=== PATIENT | male | born 1985 | race Caucasian/White ===

== ENCOUNTER 2020-02-19 14:43 | Emergency (ER) | payer MEDICAID ==
--- NOTE | 2020-02-19 14:53 | EDM.PDOC ---
ED HPI GENERAL MEDICAL PROBLEM - General Chief Complaint: General Stated Complaint: BROKEN R ANKLE? Time Seen by Provider: 02/19/20 14:52 Source of Information: Reports: Patient History Limitations: Reports: No Limitations - History of Present Illness INITIAL COMMENTS - FREE TEXT/NARRATIVE: Yesterday, roughly 9 AM, while descending from a ladder, slipped at roughly the third rung striking right ankle with inversion of the foot. Pain has persisted with swelling to the lateral aspect of the ankle region. Tenderness to the lateral malleolus. Onset Date: 02/18/20 Onset Time: 09:00 Duration: Hour(s): Location: Reports: Lower Extremity, Right Quality: Reports: Burning Severity: Moderate Improves with: Reports: None Worsens with: Reports: Movement Context: Reports: Activity Associated Symptoms: Reports: No Other Symptoms - Related Data Allergies Allergy/AdvReac Type Severity Reaction Status Date / Time No Known Drug Allergies Allergy Cannot Verified 02/19/20 14:50 Remember Home Meds: Home Meds FLUoxetine [PROzac] 10 mg PO DAILY 02/19/20 [History] Past Medical History HEENT History: Reports: Impaired Vision Gastrointestinal History: Reports: None Genitourinary History: Reports: None Musculoskeletal History: Reports: Fracture Other Musculoskeletal History: fx left metatarsal and right foot, fx. right hand, Neurological History: Reports: None Psychiatric History: Reports: None Endocrine/Metabolic History: Reports: None Hematologic History: Reports: None Immunologic History: Reports: None Dermatologic History: Reports: None - Infectious Disease History Infectious Disease History: Reports: Chicken Pox - Past Surgical History HEENT Surgical History: Reports: Eye Surgery, Laser Surgery GI Surgical History: Reports: None Male Surgical History: Reports: None Endocrine Surgical History: Reports: None Neurological Surgical History: Reports: None Musculoskeletal Surgical History: Reports: None Dermatological Surgical History: Reports: None Social & Family History - Family History Family Medical History: Noncontributory - Caffeine Use Caffeine Use: Reports: Coffee, Energy Drinks, Soda, Tea ED ROS GENERAL - Review of Systems Review Of Systems: Comprehensive ROS is negative, except as noted in HPI. ED EXAM, GENERAL - Physical Exam Exam: See Below General Appearance: Alert, WD/WN, No Apparent Distress Ears: Normal External Exam, Normal Canal, Hearing Grossly Normal Nose: Normal Inspection, Normal Mucosa Throat/Mouth: Normal Inspection, Normal Lips, Normal Teeth, Normal Oropharynx Head: Atraumatic, Normocephalic Neck: Normal Inspection, Supple, Non-Tender, Full Range of Motion Respiratory/Chest: No Respiratory Distress, Lungs Clear, Normal Breath Sounds, No Accessory Muscle Use Cardiovascular: Normal Peripheral Pulses, Regular Rate, Rhythm, No Murmur GI/Abdominal: Non-Tender (Male) Exam: Deferred Rectal (Males) Exam: Deferred Back Exam: Full Range of Motion Extremities: Other (Edema to the lateral malleolus of the right leg) Neurological: Alert, Oriented, CN II-XII Intact, Normal Cognition, Normal Gait, Normal Reflexes, No Motor/Sensory Deficits Psychiatric: Normal Affect, Normal Mood Skin Exam: Warm, Dry, Intact, Normal Color, No Rash Lymphatic: No Adenopathy Course - Vital Signs Last Recorded V/S: Last Vital Signs Temp 36.8 C 02/19/20 14:54 Pulse 85 02/19/20 14:54 Resp 16 02/19/20 14:54 BP 153/87 H 02/19/20 14:54 Pulse Ox 93 L 02/19/20 14:54 Departure - Departure Time of Disposition: 15:19 Disposition: Home, Self-Care 01 Condition: Good Clinical Impression: Fracture of fibula, closed Qualifiers: Encounter type: initial encounter Fibula location: distal Laterality: right - Discharge Information *PRESCRIPTION DRUG MONITORING PROGRAM REVIEWED*: Not Applicable *COPY OF PRESCRIPTION DRUG MONITORING REPORT IN PATIENT LUIZ: Not Applicable Instructions: Nondisplaced Fibular Ankle Fracture Treated With Immobilization, Adult Referrals: Radha Blackwell MD [Primary Care Provider] - Forms: ED Department Discharge Additional Instructions: Keep boot on at all times, secured snug. You may weight-bear on this but limit activity, use your crutches. You may remove the boot for showering bathing and replace once skin is dry. Follow-up at your clinic in roughly 2 weeks for routine evaluation, sooner if worsening discomfort. You may take Tylenol or ibuprofen for discomfort. Ice and elevate as much as possible the next 24 to 48 hours. Sepsis Event Note (ED) - Focused Exam Vital Signs: Vital Signs Temp Pulse Resp BP Pulse Ox 02/19/20 14:54 36.8 C 85 16 153/87 H 93 L - Problem List & Annotations (1) Ankle pain, right SNOMED Code(s): 091864672, 352706304 Code(s): M25.571 - PAIN IN RIGHT ANKLE AND JOINTS OF RIGHT FOOT Status: Acute Qualifiers: Chronicity: acute Qualified Code(s): M25.571 - Pain in right ankle and joints of right foot (2) Fracture of fibula, closed SNOMED Code(s): 958110141 Code(s): S82.409A - UNSP FRACTURE OF SHAFT OF UNSP FIBULA, INIT FOR CLOS FX Status: Acute Qualifiers: Encounter type: initial encounter Fibula location: distal Laterality: right - Problem List Review Problem List Initiated/Reviewed/Updated: Yes - Assessment/Plan Plan: Keep boot on at all times, secured snug. You may weight-bear on this but limit activity, use your crutches. You may remove the boot for showering bathing and replace once skin is dry. Follow-up at your clinic in roughly 2 weeks for routine evaluation, sooner if worsening discomfort. You may take Tylenol or ibuprofen for discomfort. Ice and elevate as much as possible the next 24 to 48 hours.
[2020-02-19 14:57] VITALS: BP 153/87; PULSE 85
--- NOTE | 2020-02-19 15:31 | CR ---
[id number] RAD/RAD Ankle Right 3V Min EXAM: 3 VIEWS RIGHT ANKLE. INDICATION: PAIN, SWELLING, INVERSION INJURY COMPARISON: None. DISCUSSION: Acute obliquely oriented fracture involving the distal right fibula. There is associated soft tissue edema. Mild displacement. The ankle mortise is maintained. Moderate right ankle joint effusion. IMPRESSION: 1. Acute obliquely oriented fracture involving the distal right fibula as described. Mohit Berg DO 02/19/20 1529 Thank you for allowing us to participate in the care of your patient.
== END 2020-02-19 15:30 | disposition home or self-care (01) ==
LOC: KA.ED 14:43
DX: S82.831A Other fracture of upper and lower end of right fibula, initial encounter for closed fracture (principal); Z79.899 Other long term (current) drug therapy; W11.XXXA Fall on and from ladder, initial encounter
CPT/HCPCS: 73610-RT; 99283